=== PATIENT | male | born 1960 | race Hispanic/Latino ===

== ENCOUNTER 2016-09-04 14:22 | Inpatient (IN) | payer MEDICAID ==
--- NOTE | 2016-09-04 14:53 | ED PDOC ---
Arrival/HPI - General Chief Complaint: Altered Mental Status Time Seen by Provider: 09/04/16 14:24 Historian: Patient, Family - History of Present Illness Narrative History of Present Illness (Text): 09/04/16 14:24 A 56 year old male, whose past medical history includes hepatic cancer and alcohol abuse, presents to the emergency department for altered mental status and increased confusion. Patient mother states the patient has and increase confusion for about a week. Patient is currently oriented x2. Patient reports he is currently in chemotherapy for the cancer. He denies any fever, cough, or other complaints at this time. PMD: Dr. Austin Oncologist: Dr. Gabriel Time/Duration: 1 week Symptom Onset: Sudden Symptom Course: Unchanged Quality: Other Activities at Onset: Rest Context: Home Past Medical History - Provider Review Nursing Documentation Reviewed: Yes - Tetanus Immunization Tetanus Immunization: Up to Date - Past Medical History Past Medical History: No Previous - Cardiac Hx Cardiac Disorders: No - Pulmonary Hx Respiratory Disorders: No - Neurological Hx Neurological Disorder: No - HEENT Hx HEENT Disorder: No - Renal Hx Renal Disorder: No - Endocrine/Metabolic Hx Endocrine Disorders: No - Hematological/Oncological Hx Blood Transfusions: No Hx Blood Transfusion Reaction: No - Integumentary Hx Dermatological Disorder: No - Musculoskeletal/Rheumatological Hx Musculoskeletal Disorders: No - Gastrointestinal Hx Gastrointestinal Disorders: Yes Hx Liver Failure: Yes (LIVER CA, HEPATITIS) - Genitourinary/Gynecological Hx Genitourinary Disorders: No - Psychiatric Hx Psychophysiologic Disorder: No Hx Substance Use: Yes - Past Surgical History Past Surgical History: No Previous - Anesthesia Hx Malignant Hyperthermia: No - Suicidal Assessment Feels Threatened In Home Enviroment: No Family/Social History - Physician Review Nursing Documentation Reviewed: Yes Family/Social History: Unknown Family HX Smoking Status: Former Smoker Hx Alcohol Use: Yes Hx Substance Use: Yes Substance used: COCAINE Hx Substance Use Treatment: No Allergies/Home Meds Allergies/Adverse Reactions: Allergies No Known Allergies Allergy (Verified 09/04/16 14:40) Home Medications: Home Meds Medication Instructions Recorded Confirmed Unobtainable 09/04/16 09/04/16 Review of Systems - Physician Review All systems were reviewed & negative as marked: Yes - Review of Systems Constitutional: absent: Fevers Respiratory: absent: Cough Psychiatric: Other (confused) Physical Exam Vital Signs Reviewed: Yes Vital Signs Temp Pulse Resp BP Pulse Ox 09/04/16 17:15 75 18 126/64 98 09/04/16 15:26 79 18 128/68 98 09/04/16 14:41 97.7 F 09/04/16 14:40 89 17 131/72 98 Temperature: Afebrile Blood Pressure: Normal Pulse: Regular Respiratory Rate: Normal Appearance: Positive for: Well-Appearing, Non-Toxic, Comfortable Pain Distress: None Mental Status: Positive for: Alert and Oriented X 3 - Systems Exam Head: Present: Atraumatic, Normocephalic Pupils: Present: PERRL Extroacular Muscles: Present: EOMI Conjunctiva: Present: Icteric, Other (Jaundice) Mouth: Present: Moist Mucous Membranes Neck: Present: Normal Range of Motion Respiratory/Chest: Present: Clear to Auscultation, Good Air Exchange. No: Respiratory Distress, Accessory Muscle Use Cardiovascular: Present: Regular Rate and Rhythm, Normal S1, S2. No: Murmurs Abdomen: Present: Distention (mild distention), Normal Bowel Sounds. No: Tenderness, Peritoneal Signs, Rebound, Guarding Back: Present: Normal Inspection Upper Extremity: Present: Normal Inspection. No: Cyanosis, Edema Lower Extremity: Present: Normal Inspection. No: Edema Neurological: Present: GCS=15, CN II-XII Intact, Speech Normal Skin: Present: Warm, Dry. No: Rashes, Normal Color (jaundice) Psychiatric: Present: Alert, Oriented x 3, Normal Insight, Normal Concentration Medical Decision Making ED Course and Treatment: 09/04/16 14:24 Impression: A 56 year old male with increased confusion. Differential Diagnosis include but are not limited to: hyperbilirubinemia vs. hyperammonia vs metabolic vs infectious etiology- Plan: -- EKG -- Head CT -- Chest X-ray -- Labs -- Urinalysis -- Reassess and disposition Prior Visits: Notes and results from previous visits were reviewed. The patient last presented to the emergency department on 05/08/16 for evaluation of GI bleeding. Progress Notes: EKG: Ordered, reviewed, and independently interpreted the EKG. Rate : 90 BPM Rhythm : NSR Interpretation : No ST/T changes 09/04/16 15:05 Chest X-ray: Creator : Xuan Andrew MD COMPARISON: 05/08/2016 FINDINGS: LUNGS: There is airspace disease in the right lower lobe. The left lung is clear. PLEURA: No significant pleural effusion identified, no pneumothorax apparent. CARDIOVASCULAR: Normal. OSSEOUS STRUCTURES: No significant abnormalities. VISUALIZED UPPER ABDOMEN: Normal. OTHER FINDINGS: There is chronic elevation of the right hemidiaphragm. IMPRESSION: Right lower lobe airspace disease may represent atelectasis or developing pneumonia. Follow-up after medical management is recommended to ensure complete resolution. 09/04/16 15:[address]:Creator : Florian Ramirez MD COMPARISON: 05/08/2016 FINDINGS: HEMORRHAGE: No intracranial hemorrhage. BRAIN: No mass effect or edema. No atrophy or chronic microvascular ischemic changes. VENTRICLES: Unremarkable. No hydrocephalus. CALVARIUM: Unremarkable. PARANASAL SINUSES: Unremarkable as visualized. No significant inflammatory changes. MASTOID AIR CELLS: Unremarkable as visualized. No inflammatory changes. OTHER FINDINGS: None. IMPRESSION: Normal CT of the Head. 09/04/16 16:[address] angeles, pt on nexivar, requests dr austin admission and abdominal us. dr angeles accepts pt, as dr austin request admission to dr angeles service. bili at baseline. - Lab Interpretations Lab Results: 09/04/16 16:00 09/04/16 16:00 Lab Results 09/04/16 16:20: Urine Color Dark yellow, Urine Appearance Clear, Urine pH 5.5, Ur Specific [place] 1.025, Urine Protein Trace H, Urine Glucose (UA) Negative, Urine Ketones Negative, Urine Blood Negative, Urine Nitrate Negative, Urine Bilirubin Moderate H, Urine Urobilinogen 4.0 H, Ur Leukocyte Esterase Negative, Urine RBC 0 - 2, Urine WBC 0 - 2, Urine Bacteria Small 09/04/16 16:00: WBC 8.9, RBC 3.89, Hgb 11.6 L, Hct 33.1 L, MCV 85.1, MCH 29.8, MCHC 35.0, RDW 17.7 H, Plt Count 231, MPV 10.2, Gran % 67.9, Lymph % (Auto) 16.0 L, [place] % (Auto) 15.4 H, Eos % (Auto) 0.5 L, Baso % (Auto) 0.2, Gran # 6.03 , Lymph # 1.4, [place] # 1.4 H, Eos # 0.0, Baso # 0.02, PT 14.8 H, INR 1.37 H, APTT 36.1 H, Sodium 127 L, Potassium 4.0, Chloride 90 L, Carbon Dioxide 27, Anion Gap 14, BUN 23 H, Creatinine 0.9, Est GFR ( Amer) > 60, Est GFR ( Non-Af Amer) > 60, Random Glucose 91, Calcium 8.9, Magnesium 2.0, Total Bilirubin 6.6 H, Direct Bilirubin 4.9 H, AST 169 H, ALT 44, Alkaline Phosphatase 203 H, Ammonia < 9 L, Lactate Dehydrogenase 684, Total Creatine Kinase 33 L, Troponin I < 0.01 D, Total Protein 7.5, Albumin 2.9 L, Globulin 4.6, Albumin/Globulin Ratio 0.6 L I have reviewed the lab results: Yes - RAD Interpretation Radiology Orders: 09/04/16 14:49 HEAD W/O CONTRAST [CT] Stat CHEST PORTABLE [RAD] Stat 09/04/16 16:46 ABDOMEN COMPLETE [US] Stat - Medication Orders Current Medication Orders: Discontinued Medications Piperacillin Sod/Tazobactam Sod (Zosyn 3.375 In Ns 100ml) 100 mls @ 200 mls/hr IVPB STAT STA PRN Reason: Protocol Stop: 09/04/16 15:33 Last Admin: 09/04/16 16:24 Dose: 200 MLS/HR eMAR Start Stop Document 09/04/16 16:24 SS (Rec: 09/04/16 16:27 SS [id number]) Intravenous Solution Start Date 09/04/16 Start Time 16:27 End Date 09/04/16 End time 16:57 Total Infusion Time 30 Vancomycin HCl (Vancomycin 1gm) 250 mls @ 167 mls/hr IVPB STAT STA PRN Reason: Protocol Stop: 09/04/16 16:33 Last Admin: 09/04/16 17:18 Dose: 167 MLS/HR eMAR Start Stop Document 09/04/16 17:18 SS (Rec: 09/04/16 17:18 SS [id number]) Intravenous Solution Start Date 09/04/16 Start Time 17:18 End Date 09/04/16 End time 18:48 Total Infusion Time 90 Sodium Chloride (Sodium Chloride 0.9%) 500 mls @ 999 mls/hr IV .Q31M STA Stop: 09/04/16 17:21 Last Admin: 09/04/16 17:22 Dose: 999 MLS/HR eMAR Start Stop Document 09/04/16 17:22 SS (Rec: 09/04/16 17:22 SS [id number]) Intravenous Solution Start Date 09/04/16 Start Time 17:22 End Date 09/04/16 End time 17:52 Total Infusion Time 30 - Scribe Statement The provider has reviewed the documentation as recorded by the Mariuszibdana Ardon Provider Scribe Attestation: All medical record entries made by the Scribe were at my direction and personally dictated by me. I have reviewed the chart and agree that the record accurately reflects my personal performance of the history, physical exam, medical decision making, and the department course for this patient. I have also personally directed, reviewed, and agree with the discharge instructions and disposition. Disposition/Present on Arrival - Present on Arrival Any Indicators Present on Arrival: No History of DVT/PE: No History of Uncontrolled Diabetes: No Urinary Catheter: No History of Decub. Ulcer: No History Surgical Site Infection Following: None - Disposition Have Diagnosis and Disposition been Completed?: Yes Diagnosis: Pneumonia Disposition: HOME/ ROUTINE Disposition Time: 05:00 Condition: FAIR
--- NOTE | 2016-09-04 15:03 | RAD ---
HISTORY: Weakness COMPARISON: 05/08/2016 FINDINGS: LUNGS: There is airspace disease in the right lower lobe. The left lung is clear. PLEURA: No significant pleural effusion identified, no pneumothorax apparent. CARDIOVASCULAR: Normal. OSSEOUS STRUCTURES: No significant abnormalities. VISUALIZED UPPER ABDOMEN: Normal. OTHER FINDINGS: There is chronic elevation of the right hemidiaphragm. IMPRESSION: Right lower lobe airspace disease may represent atelectasis or developing pneumonia. Follow-up after medical management is recommended to ensure complete resolution.
[2016-09-04] MEDS ORDERED: Piperacillin/Tazobact 3.375 gm 100 ML IVPB STA (15:04)
[2016-09-04] MEDS ORDERED: Vancomycin 1gm in NS 250ml 250 ML IVPB STA (15:04)
--- NOTE | 2016-09-04 15:11 | CT ---
PROCEDURE: CT HEAD WITHOUT CONTRAST. HISTORY: ams COMPARISON: 05/08/2016 TECHNIQUE: Axial computed tomography images were obtained through the head/brain without intravenous contrast. Radiation dose: Total exam DLP = 678 mGy-cm. This CT exam was performed using one or more of the following dose reduction techniques: Automated exposure control, adjustment of the mA and/or kV according to patient size, and/or use of iterative reconstruction technique. FINDINGS: HEMORRHAGE: No intracranial hemorrhage. BRAIN: No mass effect or edema. No atrophy or chronic microvascular ischemic changes. VENTRICLES: Unremarkable. No hydrocephalus. CALVARIUM: Unremarkable. PARANASAL SINUSES: Unremarkable as visualized. No significant inflammatory changes. MASTOID AIR CELLS: Unremarkable as visualized. No inflammatory changes. OTHER FINDINGS: None. IMPRESSION: Normal CT of the Head.
[2016-09-04 16:11] LABS: ADD MANUAL DIFF? NO
[2016-09-04 16:30] LABS: ALB/GLOB RATIO 0.6 (1.1-1.8); ALKALINE PHOSPHATASE 203 U/L (38-133); ALT/SGPT 44 U/L (7-56); AST/SGOT 169 U/L (15-59); BILIRUBIN,DIRECT 4.9 mg/dL (0.0-0.4); BILIRUBIN,TOTAL 6.6 mg/dL (0.2-1.3); BLOOD UREA NITROGEN 23 mg/dL (7-21); CALCIUM 8.9 mg/dL (8.4-10.5); CARBON DIOXIDE 27 mmol/L (21-33); CHLORIDE 90 mmol/L (98-107); GFR AFRICAN-AMERICAN > 60; GLUCOSE,RANDOM 91 mg/dL (70-110); SODIUM 127 mmol/L (132-148); TOTAL PROTEIN 7.5 g/dL (5.8-8.3)
[2016-09-04 16:33] LABS: BASO # 0.02 K/mm3 (0.0-2.0); BASO % 0.2 % (0.0-3.0); EOS % 0.5 % (1.5-5.0); GRAN # 6.03 (1.4-6.5); GRAN % 67.9 % (50.0-68.0); HEMATOCRIT 33.1 % (42.0-52.0); LYMPH # 1.4 (1.2-3.4); MEAN CELL VOLUME 85.1 fL (80.0-105.0); MEAN CORPUSCULAR HEMOGLOBIN 29.8 pg (25.0-35.0); MEAN PLATELET VOLUME 10.2 fl (7.0-11.0); MONO # 1.4 (0.1-0.6); MONO % 15.4 % (1.0-6.0); PLATELET COUNT 231 10^3/uL (120.0-450.0); RED CELL DISTRIBUTION WIDTH 17.7 % (11.5-14.5); WHITE BLOOD COUNT 8.9 10^3/ul (4.5-11.0)
[2016-09-04 16:34] LABS: INR 1.37 (0.93-1.08); PARTIAL THROMBOPLASTIN TIME 36.1 Seconds (23.7-30.8)
[2016-09-04 16:36] LABS: PH,URINE 5.5 (4.7-8.0); URINE BILIRUBIN MODERATE (NEGATIVE); URINE BLOOD NEGATIVE (NEGATIVE); URINE GLUCOSE (UA) NEGATIVE (NEGATIVE); URINE KETONE NEGATIVE (NEGATIVE); URINE LEUKOCYTE ESTERASE NEGATIVE Leu/uL (NEGATIVE); URINE PROTEIN TRACE mg/dL (<30 mg/dL)
[2016-09-04] MEDS ORDERED: Sodium Chloride 0.9% 500 ML IV STA (16:51)
[2016-09-04 16:56] LABS: URINE APPEARANCE CLEAR (CLEAR); URINE COLOR DARK YELLOW (YELLOW)
[2016-09-04 16:58] LABS: TROPONIN I < 0.01 ng/mL
[2016-09-04 17:16] LABS: URINE BACTERIA SMALL (NEG); URINE RBC 0 - 2 /hpf (0-2); URINE WBC 0 - 2 /hpf (0-6)
[2016-09-04] MEDS ORDERED: Piperacillin/Tazobact 3.375 gm 100 ML IVPB SCH (22:30)
[2016-09-04 22:32] VITALS: BMI 22.8
[2016-09-04] MEDS ORDERED: Pneumococcal 23-Valent Vaccine IM ONE (22:32)
[2016-09-05] MEDS: Sodium Chloride 0.9% 1,000 ML IV SCH ×2 (01:01→14:26)
[2016-09-05] MEDS: Piperacillin/Tazobact 3.375 gm 100 ML IVPB SCH ×5 (01:01→23:12)
[2016-09-05] MEDS: Morphine 2 mg/ml ISec IVP PRN ×2 (01:02→16:57)
[2016-09-05 06:23] LABS: ADD MANUAL DIFF? NO
[2016-09-05] MEDS: Vancomycin 1gm in NS 250ml 250 ML IVPB SCH ×2 (06:33→17:21)
[2016-09-05 06:45] LABS: INR 1.41 (0.93-1.08); PARTIAL THROMBOPLASTIN TIME 37.6 Seconds (23.7-30.8)
[2016-09-05 06:47] LABS: ALKALINE PHOSPHATASE 194 U/L (38-133); ALT/SGPT 44 U/L (7-56); AST/SGOT 144 U/L (15-59); BILIRUBIN,DIRECT 4.6 mg/dL (0.0-0.4); BLOOD UREA NITROGEN 24 mg/dL (7-21); CALCIUM 8.7 mg/dL (8.4-10.5); CARBON DIOXIDE 25 mmol/L (21-33); CHLORIDE 93 mmol/L (95-110); GFR AFRICAN-AMERICAN > 60; GLUCOSE,RANDOM 83 mg/dL (70-110); POTASSIUM 4.1 mmol/L (3.6-5.0); SODIUM 127 mmol/L (132-148)
[2016-09-05 06:54] LABS: BASO # 0.03 K/mm3 (0.0-2.0); BASO % 0.3 % (0.0-3.0); EOS # 0.3 (0.0-0.7); EOS % 3.2 % (1.5-5.0); GRAN # 6.14 (1.4-6.5); GRAN % 66.1 % (50.0-68.0); HEMATOCRIT 33.4 % (42.0-52.0); LYMPH # 1.4 (1.2-3.4); LYMPH % 15.4 % (22.0-35.0); MEAN CELL VOLUME 85.4 fL (80.0-105.0); MEAN CORPUSCULAR HEMOGLOBIN 29.9 pg (25.0-35.0); MEAN PLATELET VOLUME 10.4 fl (7.0-11.0); MONO # 1.4 (0.1-0.6); PLATELET COUNT 262 10^3/uL (120.0-450.0); RED CELL DISTRIBUTION WIDTH 17.8 % (11.5-14.5); WHITE BLOOD COUNT 9.3 10^3/ul (4.5-11.0)
[2016-09-05 06:55] LABS: ALB/GLOB RATIO 0.7 (1.1-1.8)
--- NOTE | 2016-09-05 08:20 | HP ---
ADMISSION: The patient is admitted through the Emergency Room. DATE OF ADMISSION: 09/04/2016. HISTORY OF PRESENT ILLNESS: This is a 56-year-old male, was a patient of mine, has a diagn osis primary of hepatocellular carcinoma involving the right lobe of the liver extending into the tommy a cava and extending into the right atrium, extending almost into the right pulmonary artery from the atrium. With such extensive disease, the patient has been seen in the past by the doctors at [facility], Dr. Jeter, to see if he is a candidate for either any major procedure or ligation or ablatio n, which was not feasible. The patient was referred back to us. He was also being assessed for ____ _ therapy and, after review of the x-rays and reports, it was felt that we should start him on Nexava r. Patient was started on Nexavar. While on Nexavar, patient had an episode of significant GI bleed and was admitted to [facility]. The bleeding stopped with aggressive therapy, was put o n PPI. Was also put on medications including diuretics for his ascites that he developed. He was al so put on medications for his portal hypertension medicines as outpatient while the Nexavar was on hold, then his Nexavar was renewed. So, it is evident at this point in time that his AFP was goi ng down. Appeared that the tumor was being controlled even though he had such extensive disease. Mo st recent ultrasound of the abdomen done after Nexavar for shows persistent and even new adrenal metastasis. The patient's ascites has become controlled with a combination of both Lasix and Aldactone along with PPI and to reduce the portal hypertension. The patient's mother had call ed us earlier on today stating that the patient, for the last week, had been acting funny and, more i mportantly, recently was having more confusion over the last several days and when they called me magalis ronquillo. I told them to bring the patient to the Emergency Room to be evaluated and assessed. My concern primarily was a hepatic decompensation with increased levels of pneumoniae that could be accounting f or the confusion. The patient was brought to the ER and promptly admitted. REVIEW OF SYSTEMS: Not feasible to get all the information as the patient is intermittently confused . SOCIAL HISTORY: The patient is a former smoker, is a former drug dependent person. Was on Suboxone for some time, but he had used cocaine as a form of recreation and them became habitual. HOME MEDICATIONS: Currently not available, but, from what I remember from his office chart, patient had been on both Aldactone and Lasix along with omeprazole for his stomach, along with Nadolol for hi s focal hypertension. The patient is taking Nexavar 200 mg 3 times a week. PHYSICAL EXAMINATION: GENERAL: The patient is pleasant, appears to be confused, but is able to recognize me. Oriented to place and person. The patient is awake, alert, and oriented x 3. VITAL SIGNS: Reviewed. Pulse of 75, respirations 18, blood pressure is 126/64, pulse is 92 with 98% on room air. The patient is afebrile. The patient is well appearing, nontoxic, comfortable, in no acute distress. HEENT: Head is normocephalic, atraumatic. Conjunctivae pale. Sclerae are anicteric. Pupils are eq ually reactive to light and accommodation. Extraocular muscles are present with range of motion bein g within normal limits. Conjunctivae anicteric as mentioned. Examination of the mouth reveals tongu e to be coated. No oropharyngeal lesions are noted. NECK: Supple. There is no adenopathy. There is no restriction in range of motion. LUNGS: Reveals it to be clear to percussion and auscultation with good air exchange. CARDIOVASCULAR: Reveals S1 and S2 to be normal. No gallop or murmur is heard. ABDOMEN: Soft, mildly distended. Liver is not palpable. Normal bowel sounds are noted. There is n o rigidity, guarding or any peritoneal signs noticeable at this time. BACK: Reveals it to be normal to inspection. There is no pain on palpation. EXTREMITIES: Upper and lower extremities reveal no cyanosis, clubbing or edema. NEUROLOGIC: The patient is awake and alert at this present time, but the patient has had apparently intermittent episodes of confusion. The patient has normal insight. Normal concentration. ASSESSMENT NOTES AND PLAN: The patient has extensive locally advanced hepatocellular carcinoma along with hep-C on , is now admitted with intermittent confusion. Initial admission diagnosis in ER was whether we were dealing with hepatic decompensation. The ammonia level is not elevated. LABORATORY DATA: Examination of the lungs and chest x-ray shows airspace disease in the right lower lobe. Left lung is clear. Pleura does not show any effusions. The admitting diagnosis, the patient could be having evolving right lower lobe infiltrate consistent with pneumonia that could be account ing to some degree to this confusion and behaving irrationally at home. CAT scan of the head reveals no hemorrhage and no new findings on the CAT scan of the head. Lab data reveals a white count of 8. 9, hemoglobin 11.6, hematocrit 33, platelet count 231. Sodium of 127, K of 4, chloride of 90, CO2 of 27, BUN of 23, creatinine 0.9, blood sugar of 91. Hemoglobin 11.6, hematocrit 33 as mentioned. Tot al bilirubin is 6.6 with an albumin of 4.9, AST is 169, alkaline phosphatase 203. Ammonia level was less than 9, direct bilirubin 4.9, AST 169, ALT is 44, alkaline phosphatase 203. LDH is 684. Creati nine kinase is 331, troponin is less than 0.01. shows 0.6. PLAN: The patient is going to be admitted and is going to continue IV antibiotics with vancomycin an d Zosyn. We will get ID see the patient. They are going to get GI Dr. Macedo to see the patient a nd make some comments on how to manage. We are going to get neurologic input as well. Dr. Donnell nicolas s been requested to see the patient to make sure we do not miss anything, though, most of the reasons for the confusion appear to be purely metabolic. We will continue to monitor the liver function and get input from GI before making any further decisions. The patient will stay on IV antibiotics and I ordered a least 1 liter of fluid. I want to give him given more fluid as I am concerned about his ascites as well. Routine post exam instructions have been given to the patient. Erwin Gabriel MD cc: [id number] TT: 09/05/2016 00:28:47 raheem
--- NOTE | 2016-09-05 08:49 | US ---
HISTORY: abd distention h/o of liver ca COMPARISON: CT abdomen and pelvis from 08/21/2016 TECHNIQUE: Sonographic evaluation of the abdomen. FINDINGS: LIVER: Measures 17.8 cm. There is diffuse increased echogenicity in the liver parenchyma and coarse hepatic echotexture with slightly nodular configuration. There is a 6.0 x 4.1 x 5.8 cm no isoechoic mass in the right hepatic lobe invading the. Also noted is a 3.2 x 1 point by 2.6 cm thrombus in the portal vein. No intrahepatic bile duct dilatation. GALLBLADDER: There are no calcified gallstones. There is layering gallbladder sludge. There is moderate gallbladder wall thickening. COMMON BILE DUCT: Measures 6.6 mm. No stones. No dilatation. PANCREAS: Unremarkable as visualized. No mass. No ductal dilatation. RIGHT KIDNEY: Measures 10.5cm. Normal echogenicity. No stone or cyst. Mild hydronephrosis LEFT KIDNEY: Measures 11.4cm. Normal echogenicity. No calculus, mass, or hydronephrosis. SPLEEN: Mild enlargement with normal echotexture. No focal lesion AORTA: No aneurysmal dilatation. IVC: Unremarkable. OTHER FINDINGS: There is moderate abdominal ascites. IMPRESSION: 1. 0.0 x 4.1 x 5.8 cm mass in the right hepatic lobe invading the IVC and also noted is portal vein thrombosis. 2. Mild splenomegaly. 3. Moderate abdominal ascites.
--- NOTE | 2016-09-05 09:10 | CARD ---
APPROVED REPORT EKG Measurement Heart [id number] <Conclusion> Normal sinus rhythm Incomplete right bundle branch block PRWP Improved repolarization and slower rate c/w ECG 05/08/16
--- NOTE | 2016-09-05 12:52 | CON ---
DATE: 09/05/2016 The patient is seen this morning in room 262, bed 1. CHIEF COMPLAINT: Change of mental status times several days. HISTORY OF PRESENT ILLNESS: This is a 56-year-old male with alcohol abuse, hepatic cancer, cirrhosis , on chemotherapy, history of portal vein thrombosis, history of adrenal mets, hepatitis C, GI bleed, gastric varices, recent hospitalization, had an endoscopy who has no known allergies, admitted with a diagnosis of pneumonia and hepatic cancer. Infectious disease consultation requested. REVIEW OF SYSTEMS: Reveals the patient is a poor historian. There have been no fevers reported. No chills. There is mild shortness of breath, no chest pain. He was seen in the Emergency Room, and in the Emergency Room, ____ was noted to have written karen t the patient has hepatic cancer, was admitted with altered mental status, and Dr. Gabriel's history and physical examination is also reviewed who states that the patient is a 56-year-old diagnosed with primary hepatocellular carcinoma involving the right lobe of the liver extending into the vena cava and extending into the right atrium, and almost into the right pulmonary artery from the atrium, exte nsive disease, and was seen by Dr. Jeter in [place], and admitted. PAST MEDICAL HISTORY: Significant for alcohol abuse, hepatic cancer, cirrhosis. The patient is on c hemotherapy. The patient has portal vein thrombosis, adrenal metastases, hepatitis C, GI bleed, olaf sal varices, and recent hospitalization. PAST SURGICAL HISTORY: Significant for endoscopy. ALLERGIES: Has no known allergies. PHYSICAL EXAMINATION: GENERAL: The patient is in bed, appearing much, much older than his stated age, end-stage cachectic. VITAL SIGNS: Temperature of 97. The blood pressure is 158/80, respiratory rate of 20, and heart rat e of 114. HEENT: Unremarkable. NECK: Supple. LUNGS: Have decreased breath sounds. HEART: Normal S1, S2. ABDOMEN: Soft, nontender. LABORATORY EXAMINATION: Reveals a white count of 9.3, hemoglobin of 11, platelets of 262. Chemistri es reveal the BUN of 24, creatinine of 1.0. LFTs are elevated. Alk phos is 194. Urinalysis is note d. Microbiology reveals pending. The patient had an ultrasound of the abdomen. Results are reviewed. Had a CAT scan of the head, which was negative, and a chest x-ray, which showed a right lower lobe in filtrate. Review of the orders, I empirically started patient last night on Zosyn and was given a dose of vanco mycin. ASSESSMENT AND PLAN: This is a 56-year-old male with alcohol abuse, hepatitis C, hepatic cancer, cir rhosis, and chemotherapy, portal vein thrombosis, adrenal metastases, gastrointestinal bleed, gastri c varices with what appears to be a right lower lobe healthcare-associated pneumonia, change of menta l status. We will treat the patient with vancomycin and Zosyn pending blood cultures and procalciton in, and urinalysis and urine cultures, and we will make further recommendations upon availability of initial results. Overall prognosis is quite poor. Jasson Monterroso MD cc: [id number] TT: 09/05/2016 12:52:09 Confirmation # [id number] Dictation # [id number]
--- NOTE | 2016-09-05 15:29 | CON ---
DATE: 09/05/2016 Seen and examined at the bedside earlier today. The chart was reviewed. REQUEST FOR CONSULT: For ascites. HISTORY OF PRESENT ILLNESS: This is a 56-year-old male with a past medical history of hepatocellular carcinoma of the right lobe with invasion to IVC and has portal vein thrombosis. The patient was se nt to the Emergency Room for further evaluation of altered mental status. As per the mother, the pat ient seemed to have increased confusion for about a week. The patient is oriented x 2, but is pleasa ntly confused at times. The patient does report some mild increasing abdominal distention. He does complain of nausea and mild abdominal pain, but denies any shortness of breath, chest pain. No repor ts of any hematemesis, melena or bright red blood per rectum. In the past, he was evaluated by Dr. Evelyn dacosta in [place]. He was not a candidate for any procedure. He was not a candidate for ligatio n or ablation. The patient is being followed by Dr. Gabriel and is on Nexavar and takes Nexavar 3 ti mes a week. He did have a chest x-ray on admission which shows right lower lobe airspace disease, ei ther atelectasis or developing pneumonia. The patient denies any fever or chills. He did have a CAT scan of the head done and that was negative for any acute findings. No ischemic changes or hemorrha ge. PAST MEDICAL HISTORY: Hepatocellular carcinoma of the right lobe of the liver with tumor thrombus, h istory of adrenal mets, hepatitis C, GI bleed in the past. He has gastric varices, has an LA grade A esophagitis. He last had endoscopy in 04/2016 when he had GI bleed. History of ETOH. PAST SURGICAL HISTORY: No cardiac or abdominal surgery. He did have liver biopsy in which rep orted hepatocellular carcinoma. FAMILY HISTORY: Noncontributory at this time. SOCIAL HISTORY: The patient has history of ETOH. The patient was a former smoker. History of cocai ne use in the past, former IV drug abuse; heroin. The patient lives with his mother. ALLERGIES: No known drug allergies. MEDICATIONS: Reviewed as per MAR. REVIEW OF SYSTEMS: The patient has intermittent confusion, but he does complain of nausea and some a bdominal discomfort. Positive findings, see HPI. VITAL SIGNS: Temperature is 97.4, blood pressure 128/66, pulse rate 96, respirations 20. LABORATORY DATA: WBC 9.3, H and H is 11.7 and 32.4, platelets of 262. PT 15.2, INR 1.41, PTT 37.6. Sodium is 127. His K is 4.1, BUN 24, creatinine is 1.0. Total bilirubin is 6.0, AST 144, ALT 44, a lkaline phosphatase is 194. Albumin is 2.8. Urinalysis: Negative leuk esterase, trace of protein, moderate bilirubin. His ammonia level is less than 9. IMAGING: Abdominal ultrasound was done. It showed mild splenomegaly, moderate abdominal ascites and a mass in the right hepatic lobe invading the IVC and also noted is portal vein thrombosis. PHYSICAL EXAMINATION: HEENT: Sclerae are icteric. NECK: Supple. CARDIAC: S1, S2. LUNGS: With decreased breath sounds, but good air entry. No rales or wheeze. ABDOMEN: With bowel sounds, soft. It is distended. Nontender on palpation. No rebound, guarding, or organomegaly. EXTREMITIES: Positive pedis pulses, no edema. NEUROLOGIC: He is awake and alert, with periods of confusion. ASSESSMENT: This is a 56-year-old male with history of ETOH and IV drug abuse in the past. He has h epatocellular carcinoma of the right lobe of the liver which extends to the inferior vena cava with p ortal vein thrombosis, comes with altered mental status, may be secondary to rule out hepatic encepha lopathy, although his ammonia level is normal. He probably has some decompensated liver cirrhosis. The patient also noted to have changes on the x-ray. He is being treated for pneumonia as well. He has got moderate ascites, history of gastric varices and portal hypertensive gastropathy. PLAN: We will request for an evaluation with Dr. Denilson Morrissey for paracentesis. We will start him on Xifaxan b.i.d. and also will give 1 dose of lactulose and the patient has been started on IV antibio tics as per ID. He is on Zosyn and vancomycin. Continue the liquid diet as tolerated. He is also b eing followed, evaluations by neurology, ID, pulmonology. Thank you for this consult and for allowing us to participate in your patient's care. We will make f terry recommendations based upon the patient's clinical course. The patient was seen and case discu ssed with Dr. Macedo. Katarina HARRIS cc: [id number] TT: 09/05/2016 15:28:37 Confirmation # [id number] Dictation # [id number] tn
--- NOTE | 2016-09-05 18:25 | CON ---
DATE: 09/05/2016 CHIEF COMPLAINT: Confusion. HISTORY OF PRESENT ILLNESS: A 56-year-old man with past medical history of advanced hepatocellular c arcinoma of the right lobe with invasion to the IVC and has portal vein thrombosis, hepatitis C, hist ory of adrenal mets and GI bleed in the past and he has history of esophageal varices and history of EtOH abuse came in for confusion. He was pleasantly found to be more confused at times than usual an d was becoming disoriented. Currently, he is back to his baseline with just some mild residual slowi ng. His chest x-ray shows right lower lobe airspace developing pneumonia. He is on antibiotic s. He also was found to have hyponatremia on his chemistry showing sodium of 127 and elevated BUN. GI is on board for decompensated liver cirrhosis. Currently, he is following commands, moving all ex tremities. PAST MEDICAL HISTORY: History of advanced hepatocellular carcinoma of the right lower lobe of the li jen with portal vein thrombosis, history of renal mets, hepatitis C, history of GI bleed in the past, esophageal varices the past with last endoscopy on 04/2016 in which he has blood, history of ETOH ab use. PAST SURGICAL HISTORY: History of liver biopsy done in 12/2015, which reported hepatocellular carcin josef. FAMILY HISTORY: Noncontributory. SOCIAL HISTORY: He has a history of EtOH abuse, was a former smoker. He has a history cocaine use a nd former IV drug abuse such as heroin in the past. He lives with his mother. ALLERGIES: No known drug allergies. MEDICATIONS: Reviewed via the reconciliation sheet. REVIEW OF SYSTEMS: A 14-point review of systems is negative except as noted in the HPI. He has inte rmittent confusion. LABORATORY DATA: Sodium is 127, potassium 4.1, chloride of 93, carbon dioxide 25, BUN of 24, creatin ine 1. Random glucose of 83. Elevated LFTs and direct total bilirubin. PHYSICAL EXAMINATION: VITAL SIGNS: Temperature of 98.4, pulse rate of 90, blood pressure 116/64, respiratory rate of 20, o xygen saturation 98% on room air. GENERAL: He is in no acute distress. HEENT: Sclerae are anicteric. NECK: Supple, no JVD, no adenopathy noted. LUNGS: Decreased breath sounds bilaterally, no rales or wheeze. ABDOMEN: Bowel sounds are soft. It is mildly distended and nontender on palpation. No guarding, no organomegaly. EXTREMITIES: There is no edema. Positive pedal pulses are felt bilaterally. No clubbing. NEUROLOGIC: The patient is alert, oriented to person, place and year. Recall to 5 minutes is 0/3. Poor attention span, slow thought process. Cranial nerves II-XII are intact. Speech is fluent witho ut any errors. MOTOR: Slight increased tone throughout. Moves all extremities equally. Toes downgoing. SENSORY: Decreased light touch and pinprick up to the calves. decreased vibration in the toes . DTRs are 2+ throughout and 1 at the ankles. COORDINATION: Tchqfz-re-ojji intact. No tremors noticed. Gait is deferred for now ASSESSMENT AND PLAN: This is a 56-year-old man with history of alcohol and IV drug abuse in the past who has advanced hepatocellular carcinoma of the right lobe of the liver, which extends into the inf erior vena cava with portal vein thrombosis, who came in for confusion. Given that his ammonia is le renaldo, but he seems to have decompensated liver cirrhosis, superimposed underlying metabolic derangemen ts given that he has hyponatremia with a sodium of 127. Overall, his hepatocellular carcinoma of the lung can cause chronic hepatic encephalopathy, superimposed underlying decompensated liver cirrhosis and, in addition, can cause metabolic derangements and hyponatremia, which can cause transient confu sional state in the patient. At this time, recommend: 1. Monitor electrolytes to slowly correct the sodium. 2. Follow up with GI's recommendations in regards to his decompensating liver disease. 3. He is on rifaximin 550 p.o. b.i.d. 4. Continue with Zosyn for prophylactic antibiotic therapy. 5. Get physical therapy for his underlying deconditioned state and continue current present medical management. No further neurological workup is needed at this time. Thank you for this consult. Please re-consult if necessary. Cornelio Jacobo MD cc: [id number] TT: 09/05/2016 18:24:46 Confirmation # [id number] Dictation # [id number] raheem
--- NOTE | 2016-09-05 19:01 | CON ---
DATE: 09/05/2016 REFERRING PHYSICIAN: Dr. Solis REASON FOR CONSULT: Shortness of breath. HISTORY OF PRESENT ILLNESS: This is a 56-year-old gentleman with a history of hepatic carcinoma, cir rhosis, been on chemotherapy, also has excessive alcohol use, history of portal vein thrombosis, hepa titis C, history of GI bleed, gastric varices, short of breath with minimal exertion, some dry cough. No hemoptysis, no hematemesis, no hematuria, no diarrhea, no leg swelling reported. PAST MEDICAL HISTORY: Hepatic cancer, cirrhosis, history of portal vein thrombosis, history of exces sive alcohol use, hepatitis C, GI bleed. ALLERGIES: None known. SOCIAL HISTORY: Denied any smoking. Does have a history of excessive alcohol use. FAMILY HISTORY: No significant cardiopulmonary disease reported. MEDICATIONS: He is on morphine 2 mg IV q.6 hours, IV fluid normal saline 60 mL per hour, vancomycin 1 gram IV q.12 hours, Xifaxan 550 mg twice a day, Zosyn 3.375 grams q.6 hours. REVIEW OF SYSTEMS: No headache, no rhinitis. Gets short of breath with minimal exertion. Has some cough, dry. No nausea, no vomiting. Denies any abdominal pain. No dysuria. No leg pain or leg swe lling. PHYSICAL EXAMINATION: GENERAL: Lying in the bed, mild short of breath. VITAL SIGNS: Temp is 98, heart rate is 90, respiratory rate is 20, blood pressure 116/64, pulse ox 9 3% on room air. HEENT: Dry mucous membrane. Crowded airway. NECK: Supple, no JVD. LUNGS: Have fair airflow with rhonchi. HEART: S1, S2. ABDOMEN: Soft, mild tenderness. EXTREMITIES: There is no edema. NEUROLOGIC: Awake, alert, follows simple command. LABORATORY DATA: Shows hemoglobin 11.7, hematocrit 33.4, WBC 9.3, platelet is 262. INR 1.41. PTT 3 8. Sodium 127, potassium 4.1, chloride 93, bicarbonate 25, BUN 24, creatinine 1.0, glucose 83, calci um 8.7. Total bili 6.0, direct bili 4.6. AST 144, ALT 44, alk phos is 194, albumin is 2.8, procalci tonin 1.77. MICROBIOLOGY: Blood culture has been negative. Had chest x-ray done on admission which shows right lower lobe infiltrate. Also had abdominal ultras ound done which shows 10 x 4.1 x 5.8 cm mass in the right hepatic lobe involving the IVC and also not ed to have portal vein thrombosis, mild splenomegaly, moderate abdominal ascites. CAT scan of the he ad was done on admission, shows normal CAT scan of the head. IMPRESSION AND PLAN: Hepatocellular carcinoma with cirrhosis, portal vein thrombosis, adrenal metast ases, history of gastrointestinal bleed with gastric varices, hepatitis C, right lower lobe infiltrat e. The patient seen by Dr. Monterroso, started on antibiotics covering healthcare-associated organis m. We will add inhaled bronchodilator. Keep head elevated at 45 degrees. Supplement oxygen. May a dd thiamine 100 mg daily. Sequential compression devices to lower extremity. Gastric prophylaxis. Thank you and we will follow with you. Dc Jiang MD cc: [id number] TT: 09/05/2016 19:00:28 Confirmation # [id number] Dictation # [id number] sn
[2016-09-05] MEDS: Albuterol-Ipratrop 3 mg / 0.5 (3 ml) UD IH SCH (20:40)
[2016-09-05] MEDS: Sucralfate 1 gm/10 ml Oral Susp UD PO SCH (23:12)
--- NOTE | 2016-09-05 23:23 | PN ---
DATE: 09/05/2016 LOCATION: The patient is currently in room 262. PROBLEM: This is a 56-year-old male with metastatic hepatocellular carcinoma affecting the liver and encroaching on to the inferior vena cava, extending into the right heart and going all the way into the pulmonary artery as new adrenal metastasis, on Nexavar chemotherapy, oral Multaq and ZITA inhibito r, admitted with recent onset of mental confusion for the last several days while on Nexavar and nicanor ent was admitted after the family had called me earlier yesterday that he was becoming more confused. My primary concern was hepatic encephalopathy. The patient was advised to come to the ER. Workup showed that he may have evidence of, not only hepatic decompensation, but the development of a right lower lobe infiltrate. The patient was started on broad spectrum antibiotics with vancomycin and Zos yn. The patient has been seen by ID as well and GI as well. PAST MEDICAL HISTORY: Significant for hepatocellular carcinoma of the right lobe, tumor thrombus and history of adrenal metastasis, peptic GI bleed in the past secondary from gastric varices with low g rade esophagitis. He had endoscopy on 05/16/2016. History of ETOH. LABORATORY DATA: White count is 9.3, H and H 11.7 and 32, platelet count is 262,000. INR is 1.41. Sodium is 127, K is 4.1, BUN is 24, creatinine 1, total bilirubin 6, AST is 144, ALT is 44, alkaline phosphatase is 194, albumin is 2.8. Urinalysis is negative for leukocyte esterase, moderate bilirubi n, his ammonia level is less than 9. He had an ultrasound done earlier today that showed mild spleno megaly, moderate abdominal ascites and a mass in the right hepatic lobe invading the IVC and also not ed his portal venous thrombosis. PHYSICAL EXAMINATION: The patient is examined in bed. He is more awake, but still intermittently confused. He was able to recognize me. VITAL SIGNS: As follows: T-max is 98.4, blood pressure is 128/66, pulse rate 96, respiration 20. HEENT: Sclerae is icteric. Temporal muscle wasting is noted. Examination of the oropharynx reveals no oropharyngeal lesions. Tongue is dry. NECK: Supple. There is no adenopathy. CARDIOVASCULAR: Reveals S1 and S2 to be normal. No gallop or murmur is heard. LUNGS: Reveal decreased breath sounds at the base with bronchial breath sounds. No rebound, rigidit y or guarding is noted. ABDOMEN: Distended secondary to ascites. EXTREMITIES: Reveal no cyanosis, clubbing or edema. NEUROLOGIC: The patient is awake and alert, is able to recognize me. Does have periods of confusion . ASSESSMENT NOTES AND PLAN: A 56-year-old with locally advanced hepatocellular carcinoma invading the vena cava, extending into the right heart and extending into the pulmonary artery. In addition to t hat, patient may even have lung metastasis, but has adrenal metastasis, currently on Nexavar. Cause for the confusion could be both hepatic decompensation and side effects from the Nexavar. Also, the possibility of superimposed infection is always there. PLAN: The patient is currently on IV antibiotics. He is also going to start Xifaxan b.i.d. The pat ient got 1 dose of lactulose and we will continue Zosyn and vancomycin for now. I am keeping him on a liquid diet and he is going to be followed by neurology and pulmonary as well. I discussed the fin dings fully with the patient's family, especially his mother and father, and explained to them the ov erall situation and how serious the prognosis is. Routine post exam instructions have been given to the patient. We will check with the neurologist if anything else needs to be done specifically for h is confusion. Otherwise, we will try to ride this over with antibiotics and conservative care. Over all, prognosis appears to be guarded. Erwin Gabriel MD cc: [id number] TT: 09/05/2016 23:23:02 Confirmation # [id number] Dictation # [id number] raheem
[2016-09-06] MEDS: Morphine 2 mg/ml ISec IVP PRN ×2 (03:26→21:59)
[2016-09-06] MEDS: Piperacillin/Tazobact 3.375 gm 100 ML IVPB SCH ×3 (05:41→18:40)
[2016-09-06] MEDS: Vancomycin 1gm in NS 250ml 250 ML IVPB SCH ×2 (06:20→17:04)
[2016-09-06] MEDS: Sodium Chloride 0.9% 1,000 ML IV SCH (07:35)
[2016-09-06] MEDS: Albuterol-Ipratrop 3 mg / 0.5 (3 ml) UD IH SCH ×3 (07:52→20:15)
--- NOTE | 2016-09-06 08:20 | PN ---
DATE: 09/05/2016 ADDENDUM This is an addendum treated to the GI progress consultation report dictated by UBALDO Sepulveda iscussed with the patient, also the patient's parents who was at bedside. On examination the patient has significant ascites, no tenderness. LABORATORY DATA: Hemoglobin 11.7, stable. IMPRESSION: This is a 56-year-old patient with chronic hepatitis C, cirrhosis with portal vein throm bosis, has gastric varices, has now ascites. In the setting of the portal vein thrombosis, ascites c ould become refractory. The reasonable thing in this patient to be considered at this point is parac entesis, consult has been requested. Thank you very much for allowing us to participate in the care of the patient. The patient has locally advanced hepatocellular carcinoma with portal vein involveme nt. A detailed discussion was held with the family during the previous admission regarding the optio ns and prognosis. Thank you very much for allowing us to participate in the care of the patient. We will continue to c losely follow up his care and suggest further management based on the clinical course. Florence Macedo MD cc: [id number] TT: 09/06/2016 00:56:00 Confirmation # [id number] Dictation # [id number] mitzi
[2016-09-06] MEDS: Sucralfate 1 gm/10 ml Oral Susp UD PO SCH ×4 (10:22→21:42)
--- NOTE | 2016-09-06 10:25 | PN ---
DATE: 09/06/2016 The patient is in bed in no acute distress, nontoxic. PHYSICAL EXAMINATION: VITAL SIGNS: Temperature is 98. Blood pressure is 140/80, respiratory rate of 18. HEENT: Unremarkable. NECK: Supple. LUNGS: Have decreased breath sounds. HEART: Normal S1, S2. ABDOMEN: Soft, nontender. LABORATORY EXAMINATION: Reveals the patient to have white count of 9.3, hemoglobin of 11, platelets of 262. Chemistries are noted. BUN of 24, creatinine of 1.0. Urinalysis is noted, and serology - H IV is negative. Microbiology reveals the blood cultures are negative. The patient is on IV vancomycin and Zosyn. The patient's abdominal ultrasound is noted. Procalcitonin is 1.77. ASSESSMENT AND PLAN: This is a 56-year-old male with alcohol abuse, hepatitis C, hepatic cancer, cir rhosis - on chemotherapy, portal vein thrombosis, adrenal metastasis, history of gastrointestinal ble ed, gastric varices, who is admitted now with, what appears to be, a right lower lobe healthcare-asso ciated pneumonia, change in mental status, which appears to be back to baseline on vancomycin and Zos yn, elevated procalcitonin, negative blood cultures. Today is day #2. Would recommend 4-7 days of a ntibiotics, and follow the procalcitonin, and clinical response. Overall, prognosis is quite poor for this patient. Dr. Gabriel's note is reviewed. He states the pa yobani's hepatocellular carcinoma is invading his inferior vena cava. Jasson Monterroso MD cc: [id number] TT: 09/06/2016 10:24:36 Confirmation # [id number] Dictation # [id number] mitzi
--- NOTE | 2016-09-06 12:07 | PN ---
DATE: 09/06/2016 Seen and examined at the bedside earlier today. He is pending paracentesis evaluation. He had a loo se stool last night and stool for C. diff was sent, but patient was given a dose of lactulose yesterd ay. No reports of any melena or bright red blood per rectum. The patient denies any nausea, vomitin g, or abdominal pain. No other acute overnight events reported. VITAL SIGNS: Temperature is 97.9, heart rate is 120, blood pressure 126/82, respirations 20, 94 on r oom air. No new labs are noted for today. He had HIV serology and that was nonreactive. PHYSICAL EXAMINATION: HEENT: Sclerae anicteric. NECK: Supple. CARDIAC: S1, S2. LUNGS: Decreased breath sounds but good aeration, no rales or wheeze. ABDOMEN: With bowel sounds, softly distended and nontender. ASSESSMENT: This is a 56-year-old male with hepatocellular carcinoma on chemotherapy. He has histor y of hepatitis C. He also has history of ETOH, portal vein thrombosis, gastric varices, history of g astrointestinal bleed in the past. He is here for pneumonia, had a change in mental status, may be h epatic encephalopathy, but also has abdominal ascites. PLAN: He is going for paracentesis. His mental status is improved. He is on Xifaxan b.i.d. He is also getting IV antibiotics of Zosyn and vancomycin, currently on a clear liquid diet, which hopefull y we can advance after paracentesis. The patient was seen and case discussed with Dr. Macedo. Katarina HARRIS cc: [id number] TT: 09/06/2016 12:07:01 Confirmation # [id number] Dictation # [id number] an
--- NOTE | 2016-09-06 12:14 | PN ---
DATE: 09/06/2016 REFERRING PHYSICIAN: Dr. Gabriel. SUBJECTIVE: The patient is lying in the bed, head at 45 degree. Family is at bedside. No headache, no rhinitis, no cough, no nausea, no vomiting, no diarrhea. No leg pain or leg swelling. OBJECTIVE: GENERAL: No acute distress. VITAL SIGNS: Temp is 98, heart rate is 96, respiratory rate is 20, blood pressure 126/82, pulse ox 9 4% on room air. HEENT: Moist mucous membranes. Crowded airway. NECK: Supple. No JVD. LUNGS: Have a fair airflow with a few rhonchi. HEART: S1, S2. ABDOMEN: Soft, nontender, nondistended. EXTREMITIES: There is no edema. NEUROLOGIC: Awake, alert, follows simple commands, but confused. MEDICATIONS: He is on Carafate 1 g q.i.d., DuoNeb q. 6 hours, morphine 2 mg q. 6 hours p.r.n., IV fl uid normal saline 60 mL per hour, vancomycin 1 g q. 12 hours, Xifaxan 550 mg twice a day, Zosyn 3.375 q. 6 hours. LABORATORY DATA: Shows hemoglobin 11.7, hematocrit 33.4, WBC 9.3. Procalcitonin was 1.77 yesterday, HIV 1 and 2 nonreactive. MICROBIOLOGY: Blood culture has been negative. IMPRESSION AND PLAN: Hepatic encephalopathy, hepatocellular carcinoma with cirrhosis, portal vein th rombosis, adrenal metastasis, gastrointestinal bleed. Gastric varices, hepatitis C, right lower lobe infiltrate. Pulmonary point of view, doing okay. Continue antibiotics. Keep head elevated at 45 d egrees, aspiration precaution. Fall precaution. Being followed by infectious disease and gastroente rology, scheduled for procedure today. We will order thiamine 100 mg daily. We will follow with you . Dc Jiang MD cc: [id number] TT: 09/06/2016 12:13:27 Confirmation # [id number] Dictation # [id number] tn
--- NOTE | 2016-09-06 15:27 | US ---
PROCEDURE: Ultrasound guided paracentesis. HISTORY: Cirrhosis. Advanced hepatoma. Recurrent ascites with abdominal pain and distension. PHYSICIAN(S): Denilson Morrissey MD. TECHNIQUE: The relative risks and indications for the procedure were explained to the patient and informed written consent obtained. Sonography of the abdomen was performed in a supine position. This revealed a small to moderate amount of non-loculated ascites, greatest in the right lower quadrant. A puncture site was selected and the area was prepped and draped in the usual sterile fashion. 1% Xylocaine was used to anesthetize the skin and soft tissues. A 7 [place] paracentesis catheter was trocared into the right lower quadrantand 1300 cc of clear, straw-colored fluid aspirated. No labs were sent IMPRESSION: Ultrasound-guided paracentesis in the right lower quadrant. 1300 cc of fluid were aspirated. Labs were sent
--- NOTE | 2016-09-06 21:31 | PN ---
DATE: 09/06/2016 This is the patient's hospital visit. For Dr. Gabriel. SUBJECTIVE: The patient is a 56-year-old male known to have hepatocellular carcinoma extending to th e vena cava, with the patient now being treated for pneumonia, resting in bed in no acute distress. The patient also has a history of drug abuse, alcohol abuse, hepatitis C, and cirrhosis. His mental status change has modestly improved, according to nursing earlier today. The patient is otherwise without complaint this visit, but reports he does want to go home. He is fa tigued by the hospital stay. He is also status post a paracentesis with 1300 mL drawn from the abdom en. OBJECTIVE: PHYSICAL EXAMINATION: VITAL SIGNS: Temperature 99, pulse 85, respirations 20, blood pressure 137/77, with a pulse ox of 95 %. HENT: Icteric sclerae. Tongue is dry. NECK: Supple. HEART: Regular rate. LUNGS: Decreased breath sounds on the right. ABDOMEN: Distended, status post paracentesis. EXTREMITIES: Has faint +1 edema. NEUROLOGIC: Awake and alert, with episodes of confusion earlier in his stay reported. SKIN: Mildly icteric. The patient's labs were done yesterday, and will be repeated tomorrow. He did have a procalcitonin l evel 1.77 yesterday, with a T-bili of 6.0, ammonia level less than 9, AST of 144, with an ALT of 44. Sodium 127, chloride of 93. His INR yesterday was 1.41. The assessment for this patient is that of pneumonia, hepatic encephalopathy with ascites, history of hepatic carcinoma with cirrhosis, portal vein thrombosis, adrenal mets, history of gastrointestinal bleed, hepatitis C positivity, history of drug abuse, and alcoholism. The plan for this patient is to continue present medical regimen. We will monitor clinically and wit h labs, with prognosis for this patient guarded. Antibiotics are to continue as per Dr. Monterroso. Jean-Pierre Solis MD cc: [id number] TT: 09/06/2016 21:30:48 Confirmation # [id number] Dictation # [id number] mitzi
[2016-09-06] MEDS: Vancomycin 25 MG/ML PO SCH (21:42)
--- NOTE | 2016-09-07 02:58 | PN ---
DATE: 09/06/2016 ADDENDUM: This is an addendum to the GI progress report dictated by Katarina Unger NP. The patient __ ___ 10,000 significant for history of fluid drained. The patient is on Xifaxan. The ammonia level n ormal. The patient is more alert now. More alert. PHYSICAL EXAMINATION: ABDOMEN: Soft. There is no tenderness. LABORATORY DATA: Stool for C. diff is antigen positive, but the patient did have several episodes of loose bowel movements. PLAN: The reasonable thing to consider is just to continue the Xifaxan and continue the p.o. vancomy alisa. The patient does have cirrhosis of the liver with secondary hepatitis C with the hepatoma with movement of the portal vein. The patient does have a gastric . Thank you for allowing me to participate in the care of your patient. Florence Macedo MD cc: [id number] TT: 09/07/2016 02:57:40 Confirmation # [id number] Dictation # [id number] mn
[2016-09-07] MEDS: Sodium Chloride 0.9% 1,000 ML IV SCH (03:20)
[2016-09-07] MEDS: Piperacillin/Tazobact 3.375 gm 100 ML IVPB SCH ×5 (06:07→23:29)
[2016-09-07] MEDS: Vancomycin 1gm in NS 250ml 250 ML IVPB SCH (06:08)
[2016-09-07 07:14] LABS: ADD MANUAL DIFF? NO
[2016-09-07 07:23] LABS: BASO # 0.04 K/mm3 (0.0-2.0); BASO % 0.4 % (0.0-3.0); EOS # 0.3 (0.0-0.7); EOS % 3.2 % (1.5-5.0); GRAN # 7.04 (1.4-6.5); GRAN % 71.5 % (50.0-68.0); HEMATOCRIT 33.1 % (42.0-52.0); LYMPH # 1.4 (1.2-3.4); LYMPH % 14.4 % (22.0-35.0); MEAN CELL VOLUME 86.6 fL (80.0-105.0); MEAN CORPUSCULAR HEMOGLOBIN 29.8 pg (25.0-35.0); MEAN CORPUSCULAR HGB CONC 34.4 g/dl (31.0-37.0); MEAN PLATELET VOLUME 9.6 fl (7.0-11.0); MONO % 10.5 % (1.0-6.0); PLATELET COUNT 300 10^3/uL (120.0-450.0); RED CELL DISTRIBUTION WIDTH 18.2 % (11.5-14.5); WHITE BLOOD COUNT 9.9 10^3/ul (4.5-11.0)
[2016-09-07 07:30] LABS: INR 1.41 (0.93-1.08)
[2016-09-07 07:38] LABS: ALB/GLOB RATIO 0.6 (1.1-1.8); ALKALINE PHOSPHATASE 204 U/L (38-133); ALT/SGPT 39 U/L (7-56); AST/SGOT 145 U/L (15-59); BILIRUBIN,TOTAL 5.6 mg/dL (0.2-1.3); BLOOD UREA NITROGEN 16 mg/dL (7-21); CALCIUM 8.4 mg/dL (8.4-10.5); CARBON DIOXIDE 25 mmol/L (21-33); CHLORIDE 97 mmol/L (98-107); GFR AFRICAN-AMERICAN > 60; GLUCOSE,RANDOM 101 mg/dL (70-110); POTASSIUM 3.5 mmol/L (3.6-5.0); SODIUM 132 mmol/L (132-148); TOTAL PROTEIN 7.2 g/dL (5.8-8.3)
[2016-09-07] MEDS: Albuterol-Ipratrop 3 mg / 0.5 (3 ml) UD IH SCH ×3 (08:10→19:33)
[2016-09-07] MEDS: Sucralfate 1 gm/10 ml Oral Susp UD PO SCH ×4 (10:15→23:11)
[2016-09-07] MEDS: Vancomycin 25 MG/ML PO SCH ×4 (10:17→23:12)
[2016-09-07] MEDS ORDERED: Potassium Chloride 20 mEq ER Tab PO ONE ×2 (12:02→14:26)
--- NOTE | 2016-09-07 12:23 | PN ---
DATE: 09/07/2016 Seen and examined at the bedside earlier today. He went for paracentesis yesterday and 1300 mL of cl ear straw-colored fluid was removed. The patient denies any nausea, vomiting, or abdominal pain. Th e patient was found to be positive for stool for C. diff antigen. He is reported to have had a forme d bowel movement last night. No reports of any bleeding. No reports of any diarrhea as of this morn ing. VITAL SIGNS: Temperature 98, blood pressure is 131/85, pulse 117, respirations 18, 94 on room air. LABORATORY DATA: WBC is 9.9, H and H is 11.4 and 33.1, platelets are 300. PT 15.2, INR is 1.41. So dium is 132, K is 3.5, his BUN is 16, creatinine is 1.0. Total bilirubin is 5.6, AST 145, ALT 39, al kaline phosphatase is 204. PHYSICAL EXAMINATION: HEENT: Sclera is icteric. NECK: Supple. CARDIAC: S1, S2. LUNGS: With decreased breath sounds but good air entry. ABDOMEN: With bowel sounds. Less distended. He has the right lower quadrant pressure dressing whic h is dry and intact. Abdomen is nontender. EXTREMITIES: With no edema. NEUROLOGIC: He is awake and alert. Aware of surroundings. He is more alert now, I think with perio ds of forgetfulness. ASSESSMENT: This is a 56-year-old male with hepatocellular carcinoma, hepatic encephalopathy with as cites, history of hepatitis C, here with pneumonia. He also has portal vein thrombosis with adrenal mets. The patient has history of ethyl alcohol and drug abuse in the past. He is status post parace ntesis. PLAN: The patient is more awake, alert. We will advance his diet to a soft low residual diet. Cont inue the Xifaxan. He is also positive for C. diff, so he is on oral vancomycin. He is also receivin g IV vancomycin, Carafate. He is also on Zosyn and on thiamine. He is noted to have mild hypokalemi a. We will recheck patient's labs in the a.m. Give him a small dose of potassium. The patient was seen and case discussed with Dr. Macedo. Katarina HARRIS cc: [facility] TT: 09/07/2016 12:23:10 Confirmation # [id number] Dictation # [id number] sn
[2016-09-07 17:09] VITALS: RESP 20
--- NOTE | 2016-09-07 17:26 | PN ---
DATE: 09/07/2016 The patient is in bed in no acute distress. PHYSICAL EXAMINATION: VITAL SIGNS: Temperature is 98, blood pressure is 130/60, respiratory rate of 16. HEENT: Unremarkable. NECK: Supple. LUNGS: Decreased breath sounds. HEART: Normal S1, S2. ABDOMEN: Soft, nontender. LABORATORY EXAMINATION: Reveals a white count of 9.9, hemoglobin 11, platelets of 300. BUN of 16, c reatinine is 1.0. Procalcitonin is 1.77. Urinalysis is noted. HIV is negative. Microbiology revea ls the blood cultures are no growth. Stool for C. diff is positive antigen, negative toxin. Review of the orders reveals the patient to be on p.o. vancomycin, IV vancomycin started by Dr. Humera avalos and IV Flagyl. Katarina Unger' note is reviewed. ASSESSMENT AND PLAN: A 56-year-old with hepatocellular carcinoma and with alcohol abuse, hepatitis C , hepatic cancer, cirrhosis, on chemotherapy, portal vein thrombosis, adrenal metastases, history of gastrointestinal bleed, gastric varices, who is admitted and who appears to be with a right lower lob e healthcare-associated pneumonia, change of mental status. Appears to be improving on vancomycin an d Zosyn. Elevated procalcitonin, negative blood cultures. Day #4 with pseudomembranous colitis, on p.o. vancomycin. We will discontinue the intravenous vancomycin. The blood cultures are negative an d complete a short course of the antibiotics with 10 days of p.o. vancomycin. Today is day #2 of p.o . vancomycin, can complete 10 days of p.o. vancomycin. We will discontinue the intravenous vancomyci n and today is day #3 of the Zosyn. We will switch to p.o. antibiotics the next 24 hours. Jasson Monterroso MD cc: [id number] TT: 09/07/2016 17:26:29 Confirmation # [id number] Dictation # [id number] sn
--- NOTE | 2016-09-07 21:33 | PN ---
DATE: 09/07/2016 This is patient's hospital visit on the medical floor. For Dr. Gabriel. SUBJECTIVE: The patient is a 56-year-old male admitted via the Emergency Room for pneumonia, mental status change. He has history of hepatocellular carcinoma, alcohol abuse, drug abuse, hepatitis C an d cirrhosis. With this, the patient is now more alert, requesting something to help him sleep as he is unable to sleep the past day or so, with the patient otherwise reporting he is taking his medicati ons as recommended and is otherwise in no acute distress with modest improvement on a daily basis. OBJECTIVE: PHYSICAL EXAMINATION: VITAL SIGNS: Temperature 98.4, pulse 88, respirations 20, blood pressure 133/91, pulse ox 96%. HEENT: Sclerae are icteric. NECK: Supple. HEART: Regular rate. LUNGS: Rare rhonchi. ABDOMEN: Soft. Minimally distended, status post paracentesis for ascites. EXTREMITIES: Faint +1 edema. NEUROLOGIC: Awake, alert, less confused this visit. SKIN: Icteric, but dry and clear. LABORATORY DATA: The patient's labs were done and they include white blood cell count of 9.9, hemogl obin 11.4, hematocrit 33.1, platelet count 300,000 with a chem metabolic panel showing a potassium of 3.5, T-bili of 5.6, albumin 2.7, procalcitonin of 1.7 with an INR of 1.41. ASSESSMENT: Pneumonia, hepatic encephalopathy, ascites, status post paracentesis, history of hepatoc ellular carcinoma, cirrhosis, portal vein thrombosis, history of gastrointestinal bleed, hepatitis C positive through drug abuse, alcohol use. PLAN: The patient is to continue the present medical regimen. Will add very low dose Ativan 0.5 p.o . at bedtime to help him sleep with continuation of present antibiotic regimen as per infectious dise ase consultants and Dr. Macedo's recommendations. Prognosis for this patient is guarded. Jean-Pierre Solis MD cc: [id number] TT: 09/07/2016 21:32:12 Confirmation # [id number] Dictation # [id number] rn
--- NOTE | 2016-09-07 21:40 | PN ---
DATE: 09/07/2016 REFERRING PHYSICIAN: Dr. Gabriel. SUBJECTIVE: He is lying in the bed, confused, does follow simple commands, status post paracentesis. No headache, no rhinitis. Short of breath with exertion. No chest pain, no nausea. Denies any vo miting. Does have loose stool. No leg pain or leg swelling. OBJECTIVE: GENERAL: No acute distress. VITAL SIGNS: Temperature is 98.4, heart rate is 88, respiratory rate is 20, blood pressure 133/91, p ulse ox 96% on room air. HEENT: Moist mucous membrane. No ulcer or oral thrush noted. Has icterus eyes. LUNGS: Has fair airflow with few rhonchi. HEART: S1 and S2. ABDOMEN: Soft, nontender, nondistended. EXTREMITIES: There is no edema. NEUROLOGIC: Awake, alert, follows simple commands, but confused. MEDICATIONS: He is on Ativan 0.5 mg twice a day p.r.n., Carafate 1 gram q.i.d., DuoNeb q. 6 hours, m orphine 2 mg q. 6 hours p.r.n., Tylenol p.r.n., vancomycin 250 mg q.i.d., thiamine 50 mg daily, Xifax an 550 mg twice a day, Zosyn 3.375 grams q. 6 hours. LABORATORY DATA: Shows hemoglobin 11.4, hematocrit 33.1, WBC 9.9, platelet count is 300. INR 1.41. Sodium 132, potassium 3.5, chloride 97, bicarbonate 25, BUN 16, creatinine 1.0, glucose 101, calcium is 8.4. Total bilirubin 5.6, AST 145, ALT 39, alkaline phosphatase is 204. Albumin is 2.7. Microb iology: Blood cultures have been negative. Stool for C. diff antigen is positive. IMPRESSION AND PLAN: Hepatic encephalopathy, hepatocellular carcinoma with cirrhosis, portal vein th rombosis, adrenal metastasis, gastrointestinal bleed, gastric varices, hepatitis C, right lower lobe infiltrate, Clostridium difficile colitis, status post paracentesis. Pulmonary point of view, doing well. Continue bronchodilator, antibiotics as per infectious diseases. Gastric prophylaxis. Sequen tial compression device to lower extremity. Fall precautions. Thank you and will follow with you. Dc Jiang MD cc: [facility] TT: 09/07/2016 21:40:21 Confirmation # [id number] Dictation # [id number] rn
[2016-09-08] MEDS: Albuterol-Ipratrop 3 mg / 0.5 (3 ml) UD IH SCH ×4 (01:26→19:18)
[2016-09-08] MEDS: Piperacillin/Tazobact 3.375 gm 100 ML IVPB SCH (05:58)
[2016-09-08 07:52] LABS: ADD MANUAL DIFF? NO
[2016-09-08 07:57] LABS: BASO # 0.03 K/mm3 (0.0-2.0); BASO % 0.3 % (0.0-3.0); EOS # 0.3 (0.0-0.7); GRAN # 7.05 (1.4-6.5); GRAN % 74.2 % (50.0-68.0); HEMATOCRIT 34.3 % (42.0-52.0); LYMPH # 1.2 (1.2-3.4); LYMPH % 12.8 % (22.0-35.0); MEAN CELL VOLUME 87.9 fL (80.0-105.0); MEAN CORPUSCULAR HEMOGLOBIN 30.3 pg (25.0-35.0); MEAN CORPUSCULAR HGB CONC 34.4 g/dl (31.0-37.0); MEAN PLATELET VOLUME 10.1 fl (7.0-11.0); MONO # 0.9 (0.1-0.6); MONO % 9.7 % (1.0-6.0); PLATELET COUNT 353 10^3/uL (120.0-450.0); RED CELL DISTRIBUTION WIDTH 18.6 % (11.5-14.5); WHITE BLOOD COUNT 9.5 10^3/ul (4.5-11.0)
[2016-09-08 08:28] LABS: ALB/GLOB RATIO 0.7 (1.1-1.8); ALKALINE PHOSPHATASE 196 U/L (38-133); ALT/SGPT 41 U/L (7-56); AST/SGOT 130 U/L (15-59); BILIRUBIN,TOTAL 5.9 mg/dL (0.2-1.3); BLOOD UREA NITROGEN 15 mg/dL (7-21); CARBON DIOXIDE 26 mmol/L (21-33); CHLORIDE 98 mmol/L (98-107); GFR AFRICAN-AMERICAN > 60; GLUCOSE,RANDOM 85 mg/dL (70-110); POTASSIUM 3.6 mmol/L (3.6-5.0); SODIUM 132 mmol/L (132-148); TOTAL PROTEIN 7.7 g/dL (5.8-8.3)
--- NOTE | 2016-09-08 10:34 | PN ---
DATE: 09/08/2016 The patient is in bed, in no acute distress, nontoxic. No fevers. PHYSICAL EXAMINATION: VITAL SIGNS: Temperature is 98, blood pressure is 120/80, respiratory rate of 16. HEENT: Unremarkable. NECK: Supple. LUNGS: Have decreased breath sounds. HEART: Normal S1, S2. ABDOMEN: Soft, nontender. LABORATORY EXAMINATION: Reveals a white count of 9.5, hemoglobin 11, platelets of 353. Chemistries are noted. BUN of 15, creatinine of 0.5. Procalcitonin is 1.77. Urinalysis is noted. Serology is HIV is negative. Microbiology reveals the blood cultures have no growth. Stool for C. diff, positiv e antigen, negative toxin. Paracentesis procedure is noted, 1300 mL of fluid was aspirated. Dr. Jiang's note is reviewed. Dr. Jean-Pierre Solis's note is reviewed. ASSESSMENT AND PLAN: A 56-year-old with hepatocellular carcinoma, alcohol abuse, hepatitis C, hepati c cancer, cirrhosis of the liver, on chemotherapy and portal vein thrombosis, adrenal metastases, his tory of gastrointestinal bleed and gastric varices and who appears with a right lower lobe healthcare -associated pneumonia, change of mental status and elevated procalcitonin, negative blood cultures. The patient also with pseudomembranous colitis, been on p.o. vancomycin and day #5 of p.o. vancomycin and day #4 of Zosyn. We will discontinue Zosyn within the next 24 hours and patient appears to have responded. The patient may be able to switch to p.o. antibiotics. Actually, we will discontinue th e Zosyn and use p.o. Vantin in addition to the p.o. vancomycin. We will use p.o. Vantin 200 mg b.i.d . x 5 days and would complete p.o. vancomycin as ordered for a total of 10-14 days. Today is day #5 of p.o. vancomycin. Jasson Monterroso MD cc: [id number] TT: 09/08/2016 10:32:49 Confirmation # [id number] Dictation # [id number] en
[2016-09-08] MEDS: Vancomycin 25 MG/ML PO SCH ×4 (10:54→22:00)
[2016-09-08] MEDS: Sucralfate 1 gm/10 ml Oral Susp UD PO SCH ×4 (10:55→22:25)
--- NOTE | 2016-09-08 14:24 | PN ---
DATE: 09/08/2016 REFERRING PHYSICIAN: Dr. Gabriel. SUBJECTIVE: He is lying in the bed, head at 45 degrees, awake, alert, but confused. No cough, no sp utum production. Gets short of breath with exertion. No nausea, no vomiting, no abdominal pain. No leg pain or leg swelling. OBJECTIVE: GENERAL: No acute distress. VITAL SIGNS: Temperature is 98, heart rate is 88, respiratory rate is 20, blood pressure 129/85, pul se ox 97% on room air. HEENT: Moist mucous membranes. Crowded airway. Mallampati score is 4. NECK: Supple. No JVD. LUNGS: Have a fair airflow with few rhonchi. HEART: S1 and S2. ABDOMEN: Positive bowel sounds, soft. EXTREMITIES: There is no edema. NEUROLOGIC: Awake, alert, but confused. MEDICATIONS: He is on Ativan 0.5 mg twice a day p.r.n., Carafate 1 gram q.i.d., DuoNeb q. 6 hours, m orphine 2 mg IV q. 4 hours p.r.n., Tylenol on a p.r.n. basis, vancomycin 250 mg q.i.d., 200 mg twice a day, vitamin B 50 mg daily, Xifaxan 50 mg twice a day. LABORATORY DATA: Shows hemoglobin 11.8, hematocrit 34.3, WBC 9.5, platelet is 353. BUN 15, creatinin e 0.9, total bilirubin 5.9, direct bilirubin 4.6, AST is 130, ALT 41, alkaline phosphatase is 196. IMPRESSION AND PLAN: Hepatic encephalopathy, hepatocellular carcinoma with cirrhosis, portal vein th rombosis, adrenal metastatic disease, has history of gastrointestinal bleed, gastric varices, hepatit is C, right lower lobe infiltrate, Clostridium difficile positive, status post paracentesis. Pulmona ry point of view, doing okay. Continue bronchodilator. Keep head elevated at 45 degrees. Continue antibiotics. Gastric prophylaxis. Sequential compression device to lower extremity. Fall precautio ns. Infectious disease and oncology followup. Will follow with you. Dc Jiang MD cc: [id number] TT: 09/08/2016 14:24:04 Confirmation # [id number] Dictation # [id number] rn
--- NOTE | 2016-09-08 14:58 | PN ---
DATE: 09/08/2016 Seen and examined at the bedside earlier today. He reports loose bowel movement x 3, no blood. Neto es nausea, vomiting, or abdominal pain. He is tolerating his solid diet. VITAL SIGNS: Temperature is 98.2, blood pressure 129/85, pulse is , respirations 20, 97% on inez m air. LABORATORIES: Today, WBC is 9.5, H and H 11.8 and 34.3, platelet is 353. Sodium is 132, K 3.6, BUN 15, creatinine 0.9. His total bilirubin is 5.9, AST 130, ALT 41, alkaline phosphatase is 196. PHYSICAL EXAMINATION: HEENT: Sclera is anicteric. NECK: Supple. CARDIAC: S1, S2. LUNG SOUNDS: With decreased breath sounds, but good air entry, no rales or wheeze. ABDOMEN: With bowel sounds, soft, is less distended, status post paracentesis, nontender. EXTREMITIES: Lower bilateral extremities, did not assess any edema. ASSESSMENT: This is a 56-year-old male with hepatocellular carcinoma, hepatic encephalopathy with im proved mental status. He is more awake, alert, and aware of surroundings with abdominal distention, found to have ascites, status post paracentesis. The patient with a history of portal vein thrombosi s, adrenal mets, a history of ethyl alcohol abuse and drug abuse. PLAN: Continue soft, low residual diet. Will continue Xifaxan, oral vancomycin for Clostridium diff icile. He is also getting Carafate and IV vancomycin, Zosyn and thiamine. The Zosyn has been discon tinued and he has been started on oral Vantin by ID. The patient was seen and case discussed with Dr. Macedo. Katarina HARRIS cc: [id number] TT: 09/08/2016 14:58:01 Confirmation # [id number] Dictation # [id number] en
--- NOTE | 2016-09-08 15:12 | PN ---
DATE: 09/08/[address] Gabriel. SUBJECTIVE: The patient is a 56-year-old male seen resting on the medical floor, known history of he patocellular carcinoma, now admitted for pneumonia, hepatic encephalopathy, ascites which is now mode stly improved, status post paracentesis. With this, the patient is otherwise participating with care and is more alert this visit. OBJECTIVE PHYSICAL EXAMINATION: VITAL SIGNS: Temperature 98.2, pulse 124 with a repeat of 90, respirations 20, blood pressure 129/85 , pulse ox 95%. HEENT: Sclerae are icteric. NECK: Supple. HEART: Tachy rate, regular rhythm. LUNGS: Rare rhonchi. ABDOMEN: Distended with positive fluid wave with dressing on the right mid abdomen, status post para centesis. EXTREMITIES: Faint +1 edema. NEUROLOGIC: Awake, alert and less confused today. LABORATORY DATA: The patient's labs were done. White blood cell count 9.5, hemoglobin 11.8, hematoc rit 34.3, platelet count of 353,000 with a chem metabolic panel showing a T-bili of 5.9, AST of 130 w ith an otherwise normal chem metabolic panel. His INR was 1.4 yesterday. The patient's C. difficile antigen testing 2 days ago was antigen positive, toxin negative. ASSESSMENT: Pneumonia, Clostridium difficile positive stool, hepatocellular carcinoma, hepatitis C p ositivity, cirrhosis of the liver, portal vein thrombosis, adrenal metastasis, history of gastric ble ed. The patient's hepatic encephalopathy is improving. He also has ascites, history of drug abuse, alcohol abuse. PLAN: To continue present medical regimen with antibiotics. Consideration for reevaluation for para centesis as his ascites fluid is starting to reaccumulate. We will monitor clinically and with labs. Jean-Pierre Solis MD cc: [id number] TT: 09/08/2016 15:12:24 Confirmation # [id number] Dictation # [id number] tn
[2016-09-08 16:47] VITALS: TEMP 98.4
[2016-09-08] MEDS: Cefpodoxime (Vantin) 200 mg Tab PO SCH (22:25)
[2016-09-09] MEDS: Albuterol-Ipratrop 3 mg / 0.5 (3 ml) UD IH SCH ×3 (01:33→13:57)
[2016-09-09 07:32] LABS: ADD MANUAL DIFF? NO
[2016-09-09 07:54] LABS: BASO # 0.02 K/mm3 (0.0-2.0); BASO % 0.2 % (0.0-3.0); EOS # 0.3 (0.0-0.7); EOS % 3.2 % (1.5-5.0); GRAN % 71.5 % (50.0-68.0); HEMATOCRIT 30.9 % (42.0-52.0); LYMPH # 1.6 (1.2-3.4); LYMPH % 15.6 % (22.0-35.0); MEAN CELL VOLUME 87.3 fL (80.0-105.0); MEAN CORPUSCULAR HEMOGLOBIN 30.2 pg (25.0-35.0); MEAN CORPUSCULAR HGB CONC 34.6 g/dl (31.0-37.0); MEAN PLATELET VOLUME 9.9 fl (7.0-11.0); MONO # 0.9 (0.1-0.6); MONO % 9.5 % (1.0-6.0); PLATELET COUNT 341 10^3/uL (120.0-450.0); RED CELL DISTRIBUTION WIDTH 18.5 % (11.5-14.5); WHITE BLOOD COUNT 9.9 10^3/ul (4.5-11.0)
[2016-09-09 08:08] LABS: ALKALINE PHOSPHATASE 168 U/L (38-133); ALT/SGPT 35 U/L (7-56); AST/SGOT 124 U/L (15-59); BILIRUBIN,TOTAL 4.8 mg/dL (0.2-1.3); BLOOD UREA NITROGEN 15 mg/dL (7-21); CALCIUM 8.9 mg/dL (8.4-10.5); CARBON DIOXIDE 24 mmol/L (21-33); CHLORIDE 100 mmol/L (95-110); GFR AFRICAN-AMERICAN > 60; GLUCOSE,RANDOM 84 mg/dL (70-110); POTASSIUM 3.8 mmol/L (3.6-5.0); SODIUM 132 mmol/L (132-148)
[2016-09-09 08:10] LABS: ALB/GLOB RATIO 0.7 (1.1-1.8)
[2016-09-09 09:14] VITALS: BP 124/70; PULSE 87; O2SAT 97
[2016-09-09] MEDS: Sucralfate 1 gm/10 ml Oral Susp UD PO SCH (10:27)
[2016-09-09] MEDS: Vancomycin 25 MG/ML PO SCH (10:27)
[2016-09-09] MEDS: Cefpodoxime (Vantin) 200 mg Tab PO SCH (10:27)
--- NOTE | 2016-09-09 13:28 | PN ---
DATE: 09/09/2016 SUBJECTIVE: This patient was seen and evaluated earlier and discussed with Dr. Jean-Pierre Solis. Th is 56-year-old patient with cirrhosis of the liver with hepatocellular carcinoma with the improvement of the portal vein, refractory ascites, status post paracentesis was found to have C. difficile coli tis this admission. The patient is on p.o. vancomycin. The patient has been doing well regarding di arrhea. The patient did have a right lower lobe infiltrate and has been on antibiotics, Vantin, advi sed to continue that. PHYSICAL EXAMINATION: VITAL SIGNS: Temperature is 98.4, blood pressure 124/70, pulse 87, respirations 20, O2 saturation 97 . HEENT: Atraumatic, anicteric. The patient is jaundiced. NECK: Supple. HEART: S1, S2 heard. LUNGS: Bilateral air entry present. ABDOMEN: Softly distended. Prominent veins are seen in the abdominal wall. EXTREMITIES: No cyanosis, no clubbing. LABORATORY DATA: Total bilirubin has come down to 4.8. AST 124, ALT 35 and ALT is 168. Hemoglobin is 10.7, hematocrit 30.9, WBC is 9.9, platelets 241. IMPRESSION: This 56-year-old patient with decompensated cirrhosis secondary to ETOH and hepatitis C has a portal vein involvement of the tumor thrombosis. The hepatocellular carcinoma extending into t he inferior vena cava and right atrium. Has refractory ascites, status post paracentesis. PLAN: The patient is going to be discharged with p.o. vancomycin and Xifaxan. The patient did have significant improvement with the Xifaxan. Diarrhea has improved. The patient was put on lactulose e tatianna, had increased diarrhea. Now, the patient is being treated for C. diff also is improving. If the Xifaxan is not improved, then it is a reasonable thing to consider low dose lactulose until we g et approval for the Xifaxan. Advised to follow up with Dr. Gabriel. Thank you very much for allowing us to participate in the care of the patient. Medical followup this with the primary care doctor and also with an oncologist, Dr. Gabriel. The patient has been on morales xidil. Florence Macedo MD cc: [id number] TT: 09/09/2016 13:28:06 Confirmation # [id number] Dictation # [id number] jn
--- NOTE | 2016-09-09 14:44 | PN ---
DATE: 09/09/2016 The patient seen earlier today. No fevers, no chills, no nausea. PHYSICAL EXAMINATION: VITAL SIGNS: Temperature is 98, blood pressure is 120/70, respiratory rate 16. HEENT: Unremarkable. NECK: Supple. LUNGS: Have decreased breath sounds. HEART: Normal S1, S2. ABDOMEN: Soft, nontender. LABORATORY DATA: Reveals a white count of 9.9, hemoglobin of 10, platelets of 341. Chemistries reve al the BUN of 15, creatinine of 0.8, procalcitonin is 1.77. Urinalysis is noted. HIV is negative. Blood cultures are negative and stool for C. diff antigen is positive, toxin is negative. ASSESSMENT AND PLAN: A 56-year-old with hepatocellular carcinoma, alcohol abuse, hepatitis C, hepati c cancer, cirrhosis of liver, on chemotherapy. The patient also with portal vein thrombosis, adrenal metastases, history of gastrointestinal bleeding, gastric varices and right lower lobe healthcare-as sociated pneumonia, change of mental status, elevated procalcitonin and then pseudomembranous colitis , now on p.o. vancomycin day #6. Would complete 10-14 days of that and the patient is also on other medications. We will follow closely with you. Possible discharge. The patient was seen early this morning, 376, bed 2. Jasson Monterroso MD cc: [id number] TT: 09/09/2016 14:43:38 Confirmation # [id number] Dictation # [id number] jn
--- NOTE | 2016-09-09 20:16 | DS ---
For Dr. Gabriel. SUBJECTIVE: The patient is a 56-year-old male admitted via the Emergency Room for pneumonia, hepatic encephalopathy, ascites, known to suffer from hepatocellular carcinoma with history of drug abuse, a lcohol abuse. With this, the patient is now feeling significantly improved with his mental status ch anges improved, anxious for discharge home, threatening to sign against medical advice as he is no lo nger on IV antibiotics, despite explanation to the patient that the other doctors involved in the aster hernández's care should concur that discharge would be inappropriate with his medicines to be arranged as they might not be covered with his insurance and he may end up back in the hospital within a brief pe riod of time if this is not done in appropriate fashion. With this, after discussion with Dr. Phuong harrell, Dr. Monterroso and Dr. Gabriel, we will discharge the patient for followup in the office in appr oximately 5 days' time or earlier and medications being called into Pharmacy as listed. The rosy hilton is in no acute distress, anxious for discharge home. OBJECTIVE: PHYSICAL EXAMINATION: VITAL SIGNS: Temperature 98.4, pulse 87, respirations 20, blood pressure 124/70, pulse ox 97%. HEENT: Sclerae are icteric. NECK: Supple. HEART: Regular rate. LUNGS: Occasional rhonchi. ABDOMEN: Distended with minimal positive ascitic fluid wave, status post thoracentesis of 1300 mL 3 days prior. EXTREMITIES: Faint +1 edema. NEUROLOGIC: Awake and alert. SKIN: Warm, dry, but icteric. LABORATORY DATA: The patient's labs were done. White blood cell count of 9.9, hemoglobin 10.7, marie tocrit 30.9, platelet count 341,000 with a chem panel showing a T-bili of 4.8, down from his original value of 6.6 on 09/04 with an AST of 124, ALT of 35, alkaline phosphatase 168. HIV testing done on was negative. The patient's C. difficile testing done on 09/05 showed positive antigen, negative toxin. Blood cultu res remain negative. DISCHARGE MEDICATIONS: After discussion with Dr. Monterroso, Dr. Macedo and Dr. Gabriel and the [facility], pharmacy, will include his home medications, which include oxycodone, Nexavar 3 times a week, Aldactone 50 mg once a day, Lasix 20 mg once a day, nadolol 20 mg once a day, Protonix 40 mg o nce a day, Ambien 10 mg at bedtime p.r.n. He will be discharged home from the hospital on Vantin 200 mg p.o. b.i.d. for 5 days, Flagyl 250 mg p.o. q.i.d. for 7 days with lactulose 5 mL which is 40 mL d aily. The insurance company would not allow Xifaxan which was the preferred drug 550 mg twice a day, which Dr. Macedo comments that he will need indefinitely. Prior authorization was necessary and t his cannot be obtained prior to discharge. We will discontinue his Carafate. He was also recommende d discharge on vancomycin as per Dr. Monterroso. However, this was also not covered with his insuran ce and we will substitute Flagyl in the interim. The patient's diet is to continue, which is altered GI hepatic diet along with dietary supplements. With this, the patient is to follow up in 3-5 days' time in the office with Dr. Gabriel or earlier to the Emergency Room p.r.n. DISCHARGE DIAGNOSES: Pneumonia, Clostridium difficile enterocolitis, hepatocellular carcinoma, hepat itis C positivity, cirrhosis of the liver, portal vein thrombosis, adrenal metastases, history of GI bleed, hepatic encephalopathy, improved, ascites, improved status post paracentesis, history of IV dr ug abuse, history of alcohol abuse. PLAN: As above with followup in 3-5 days in the office with Dr. Gabriel or earlier to the Emergency Room. Jean-Pierre Solis MD cc: [id number] TT: 09/09/2016 20:15:49 jaye
== END 2016-09-09 14:14 | disposition home or self-care (01) | DRG 556 ==
LOC: ED 14:22 → ERH 16:48 → 2RNO 21:06 → 3RSO 09-07 00:14
PROVIDERS: ADMIT Family Medicine; ATTEND Family Medicine
PROC: 0W9G3ZX Drainage of Peritoneal Cavity, Percutaneous Approach, Diagnostic (ICD-10-PCS; principal; 2016-09-06 12:00)
DX: K72.90 Hepatic failure, unspecified without coma (principal); J18.9 Pneumonia, unspecified organism; I81 Portal vein thrombosis; C22.0 Liver cell carcinoma; A04.7 Enterocolitis due to Clostridium difficile; C79.70 Secondary malignant neoplasm of unspecified adrenal gland; R64 Cachexia; K70.31 Alcoholic cirrhosis of liver with ascites; B18.2 Chronic viral hepatitis C; E87.1 Hypo-osmolality and hyponatremia; B19.20 Unspecified viral hepatitis C without hepatic coma; K76.6 Portal hypertension; F10.10 Alcohol abuse, uncomplicated; K31.89 Other diseases of stomach and duodenum; I86.4 Gastric varices; K20.9 Esophagitis, unspecified; Z87.898 Personal history of other specified conditions; Z87.891 Personal history of nicotine dependence; Z68.21 Body mass index [BMI] 21.0-21.9, adult